=== PATIENT | female | born 1940 | race American Indian/Alaskan Native ===

== ENCOUNTER 2017-04-24 09:58 | Emergency (ER) | payer MEDICARE ==
[2017-04-24 11:07] VITALS: BP 168/84
[2017-04-24] MEDS ORDERED: MOTRIN PO ONE (13:49)
--- NOTE | 2017-04-24 13:59 | Emergency Department Report ---
ED Fall HPI - General Chief Complaint: Fall Stated Complaint: FALL Time Seen by Provider: 04/24/17 12:45 Source: patient Mode of arrival: Ambulatory - History of Present Illness Initial Comments: This is a 77-year-old female nontoxic, well nourished in appearance, no acute signs of distress presents to the ED with c/o of right shoulder pain status post fall that occured on 04/18/2016. Patient stated she was in [employer] and was walking and tripped over a water and landed on her right shoulder region. Patient denies any head trauma. Denies loss of consciousness. Patient denies any numbness, tingling, neck pain, nausea, vomiting, chest pain, shortness of breathe, fever, chills, headache. Patient describes pain as aching with level of 8/10. Patient stated her symptoms of pain has increased since the fall. Patient denies any drug allergies. PMH includes HTN. MD Complaint: fall -: days(s) (6) Fall From: standing When Fall Occurred: # days [employer] (6) Fall Witnessed: yes, by family (son) Place Fall Occurred: other ([facility]) Prolonged Down Time?: no Symptoms Prior to Fall: none Location - Extremities: Right: Shoulder Severity: mild Severity scale (0 -10): 8 Quality: aching Context: tripped/slipped Associated Symptoms: denies. denies: headache, neck pain, numbness, weakness, chest paint, shortness of breath, abdominal pain, hematuria, unable to walk, lightheaded, vertigo, confusion - Related Data Previous Rx's Medication Instructions Recorded Last Taken Type Ibuprofen [Motrin] 600 mg PO Q8H PRN #30 tablet 04/24/17 Unknown Rx Allergies Allergy/AdvReac Type Severity Reaction Status Date / Time lobster Allergy Vomiting Uncoded 04/24/17 11:03 ED Review of Systems ROS: Stated complaint: FALL Other details as noted in HPI Constitutional: denies: chills, fever Eyes: denies: eye pain, eye discharge, vision change ENT: denies: ear pain, throat pain Respiratory: denies: cough, shortness of breath, wheezing Cardiovascular: denies: chest pain, palpitations Endocrine: no symptoms reported Gastrointestinal: denies: abdominal pain, nausea, diarrhea Genitourinary: denies: urgency, dysuria, discharge Musculoskeletal: denies: back pain, joint swelling, arthralgia Skin: denies: rash, lesions Neurological: denies: headache, weakness, paresthesias Psychiatric: denies: anxiety, depression Hematological/Lymphatic: denies: easy bleeding, easy bruising ED Past Medical Hx - Past Medical History Previous Medical History?: Yes Hx Hypertension: Yes - Surgical History Past Surgical History?: Yes Additional Surgical History: Umbilical hernia repair, Fatty tissue removed from right shoulder and back of neck - Social History Smoking Status: Current Every Day Smoker Substance Use Type: Alcohol, Prescribed - Medications Home Medications: Home Medications Medication Instructions Recorded Confirmed Last Taken Type Ibuprofen [Motrin] 600 mg PO Q8H PRN #30 tablet 04/24/17 Unknown Rx ED Physical Exam - General Limitations: No Limitations General appearance: alert, in no apparent distress - Head Head exam: Present: atraumatic, normocephalic, normal inspection - Eye Eye exam: Present: normal appearance, PERRL, EOMI. Absent: scleral icterus, conjunctival injection, nystagmus, periorbital swelling, periorbital tenderness Pupils: Present: normal accommodation - ENT ENT exam: Present: normal exam, normal orophraynx, mucous membranes moist, TM's normal bilaterally, normal external ear exam - Neck Neck exam: Present: normal inspection, full ROM. Absent: tenderness, meningismus, lymphadenopathy, thyromegaly - Respiratory Respiratory exam: Present: normal lung sounds bilaterally. Absent: respiratory distress, wheezes, rales, rhonchi, stridor, chest wall tenderness, accessory muscle use, decreased breath sounds, prolonged expiratory - Cardiovascular Cardiovascular Exam: Present: regular rate, normal rhythm, normal heart sounds. Absent: bradycardia, tachycardia, irregular rhythm, systolic murmur, diastolic murmur, rubs, gallop - GI/Abdominal GI/Abdominal exam: Present: soft, normal bowel sounds. Absent: distended, tenderness, guarding, rebound, rigid, diminished bowel sounds - Rectal Rectal exam: Present: deferred - Extremities Exam Extremities exam: Present: normal inspection, full ROM, tenderness, normal capillary refill. Absent: pedal edema, joint swelling, calf tenderness - Expanded Upper Extremity Exam Right General: Present: normal inspection Shoulder Exam: Present: normal inspection, full ROM, tenderness. Absent: swelling, abrasion, laceration, ecchymosis, deformity, crepidus, dislocation, erythema, tenderness over AC joint Upper Arm exam: Present: normal inspection, full ROM. Absent: tenderness, swelling, abrasion, laceration, ecchymosis, deformity, crepidus, dislocation, erythema Elbow exam: Present: normal inspection, full ROM. Absent: tenderness, swelling , abrasion, laceration, ecchymosis, deformity, crepidus, dislocation, erythema, effusion, pain w/ pronation/supination, tenderness over radial head Forearm Wrist exam: Present: normal inspection, full ROM. Absent: tenderness, swelling, abrasion, laceration, ecchymosis, deformity, crepidus, dislocation, erythema, tenderness over anatomical snuff box, pain with axial thumb loading Hand Wrist exam: Present: normal inspection, full ROM. Absent: tenderness, swelling, abrasion, laceration, ecchymosis, deformity, crepidus, dislocation, erythema, amputation, nail avulsion, subungual hematoma Neuro motor exam: Present: wrist extension intact, thumb opposition intact, thumb IP flexion intact, thumb adduction intact, fingers 2-5 abduction intact Neurosensory exam: Present: 2-point discrimination, radial nerve intact, ulnar nerve intact, median nerve intact Vascular: Present: vascular compromise, normal capillary refill, radial pulse, brachial pulse, ulnar pulse - Back Exam Back exam: Present: normal inspection, full ROM. Absent: tenderness, CVA tenderness (R), CVA tenderness (L), muscle spasm, paraspinal tenderness, vertebral tenderness, rash noted - Neurological Exam Neurological exam: Present: alert, oriented X3, CN II-XII intact, normal gait, reflexes normal - Psychiatric Psychiatric exam: Present: normal affect, normal mood - Skin Skin exam: Present: warm, dry, intact, normal color. Absent: rash ED Course Vital Signs 04/24/17 11:03 Temperature 98.3 F Pulse Rate 63 Respiratory 18 Rate Blood Pressure 168/84 O2 Sat by Pulse 99 Oximetry - Reevaluation(s) Reevaluation #1: 04/24/17 14:01 Patient is speaking in full sentences with no signs of distress noted. ED Medical Decision Making - Medical Decision Making This is a 77-year-old female that presents with right shoulder strain. Patient is stable and was examined by me. Xray of right shoulder has been obtained and dictated by radiologist with possible bursitis and arthritis. Patient was notified of xray results with no questions noted. Patient received shoulder sling in the ED and was instructed to Follow-up with a orthopedic doctor in 3-5 days or if symptoms worsen and continue return to emergency room as soon as possible. At time time of discharge, the patient does not seem toxic or ill in appearance. No acute signs of distress noted. Patient agrees to discharge treatment plan of care. No further questions noted by the patient. Critical care attestation.: If time is entered above; I have spent that time in minutes in the direct care of this critically ill patient, excluding procedure time. ED Disposition Clinical Impression: Right shoulder strain Qualifiers: Encounter type: initial encounter Qualified Code(s): S46.911A - Strain of unspecified muscle, fascia and tendon at shoulder and upper arm level, right arm , initial encounter Disposition: TO HOME OR SELFCARE Is pt being admited?: No Does the pt Need Aspirin: No Condition: Stable Instructions: Ibuprofen (By mouth), Rotator Cuff Injury (ED) Additional Instructions: follow-up with the orthopedic doctor in 3-5 days for your abnormal xray as instructed to you in the ED or if symptoms worsen and continue return to emergency room as soon as possible. Prescriptions: Ibuprofen [Motrin] 600 mg PO Q8H PRN #30 tablet PRN Reason: Pain Referrals: CARMEN VU MD [Primary Care Provider] - 3-5 Days CELESTE CARUSO MD [Staff Physician] - 3-5 Days [facility] [Outside] - 3-5 Days [facility] [Outside] - 3-5 Days
--- NOTE | 2017-04-24 16:02 | XRay Report ---
FINAL REPORT EXAM: XR SHOULDER 2+V RT HISTORY: shoulder pain s/p fall TECHNIQUE: Three views right shoulder Comparison: None FINDINGS: There is global osteopenia. There is acromial clavicular degenerative arthritis especially along the undersurface. There is extensive HO Wu of the inferior acromion which likely impinges on the supraspinatus and possibly the infraspinatus. There is no dislocation. There are calcific densities projecting in the region of the expected insertion of the acromion which may represent calcific bursitis. The imaged right lung apex is clear. The scapula is unremarkable. There is no definite fracture. 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 Calcific bursitis likely present with calcific densities in the subacromial space. No acute fracture or dislocation identified.
== END 2017-04-24 16:23 | disposition home or self-care (01) ==
LOC: ED 09:58
DX: S46.911A Strain of unspecified muscle, fascia and tendon at shoulder and upper arm level, right arm, initial encounter (principal); F17.200 Nicotine dependence, unspecified, uncomplicated; I10 Essential (primary) hypertension; W18.39XA Other fall on same level, initial encounter; Y93.89 Activity, other specified; Y92.89 Other specified places as the place of occurrence of the external cause; Y99.8 Other external cause status
CPT/HCPCS: 99283

== ENCOUNTER 2017-07-21 19:02 | Emergency (ER) | payer MEDICARE ==
--- NOTE | 2017-07-21 22:47 | Emergency Department Report ---
ED General Adult HPI - General Chief complaint: Extremity Injury, Lower Stated complaint: LEFT LEG PAIN Time Seen by Provider: 07/21/17 22:35 Source: patient Mode of arrival: Ambulatory Limitations: No Limitations - History of Present Illness Initial comments: Patient is 77-year-old female with history of hypertension and right rotator cuff tear. Patient presented to the ER for evaluation of possible left lower extremity DVT. 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 She stated that she sustained a fall in April 2017 and she was evaluated in the ER for shoulder pain but 2 weeks later she started having left lower extremity pain. She denied any chest pain or shortness of breath. Patient denied any fever recently or trauma. Severity scale (0 -10): 0 - Related Data Previous Rx's Medication Instructions Recorded Last Taken Type Ibuprofen [Motrin] 600 mg PO Q8H PRN #30 tablet 04/24/17 Unknown Rx Allergies Allergy/AdvReac Type Severity Reaction Status Date / Time lobster Allergy Vomiting Uncoded 04/24/17 11:03 ED Review of Systems ROS: Stated complaint: LEFT LEG PAIN Other details as noted in HPI Comment: All other systems reviewed and negative Constitutional: denies: chills, fever Respiratory: denies: cough, shortness of breath, SOB with exertion Gastrointestinal: denies: abdominal pain, nausea, vomiting, diarrhea, constipation Musculoskeletal: denies: back pain Neurological: denies: headache, weakness ED Past Medical Hx - Past Medical History Hx Hypertension: Yes Additional medical history: right rotator cuff tear 2018 - Surgical History Additional Surgical History: Umbilical hernia repair, Fatty tissue removed from right shoulder and back of neck - Social History Smoking Status: Never Smoker Substance Use Type: None - Medications Home Medications: Home Medications Medication Instructions Recorded Confirmed Last Taken Type Ibuprofen [Motrin] 600 mg PO Q8H PRN #30 tablet 04/24/17 Unknown Rx ED Physical Exam - General Limitations: No Limitations General appearance: alert, in no apparent distress - Head Head exam: Present: atraumatic, normocephalic, normal inspection - Eye Eye exam: Present: normal appearance, PERRL - ENT ENT exam: Present: normal exam, normal orophraynx - Neck Neck exam: Present: normal inspection, full ROM. Absent: tenderness, meningismus, lymphadenopathy - Respiratory Respiratory exam: Present: normal lung sounds bilaterally. Absent: respiratory distress, wheezes, rales, rhonchi, stridor, chest wall tenderness, accessory muscle use, decreased breath sounds, prolonged expiratory - Cardiovascular Cardiovascular Exam: Present: regular rate, normal rhythm, normal heart sounds - GI/Abdominal GI/Abdominal exam: Present: soft, normal bowel sounds. Absent: distended, tenderness, guarding, rebound, rigid, organomegaly, mass, bruit, pulsatile mass , hernia - Extremities Exam Extremities exam: Present: normal inspection, full ROM, normal capillary refill. Absent: tenderness, pedal edema, joint swelling, calf tenderness - Back Exam Back exam: Present: normal inspection, full ROM. Absent: CVA tenderness (L), muscle spasm, paraspinal tenderness - Neurological Exam Neurological exam: Present: alert, oriented X3, CN II-XII intact, normal gait - Skin Skin exam: Present: warm, intact, normal color ED Course Vital Signs 07/21/17 07/21/17 07/21/17 19:10 22:25 22:30 Temperature 98.3 F Pulse Rate 62 Respiratory 18 16 Rate Blood Pressure 131/83 O2 Sat by Pulse 97 97 85 Oximetry 07/21/17 07/21/17 07/21/17 22:31 22:32 22:33 Temperature Pulse Rate 69 61 60 Respiratory 13 13 13 Rate Blood Pressure 183/79 183/79 O2 Sat by Pulse 97 97 98 Oximetry 07/21/17 07/21/17 07/21/17 22:35 22:39 22:41 Temperature 97.9 F Pulse Rate 62 49 L Respiratory 13 10 L Rate Blood Pressure 183/79 183/79 O2 Sat by Pulse 99 99 Oximetry 07/21/17 07/21/17 07/21/17 22:45 22:51 22:55 Temperature Pulse Rate 55 L 60 57 L Respiratory 12 9 L 11 L Rate Blood Pressure 183/79 183/79 183/79 O2 Sat by Pulse 98 96 97 Oximetry 07/21/17 07/21/17 07/21/17 23:01 23:05 23:11 Temperature Pulse Rate 54 L 59 L 57 L Respiratory 16 26 H 17 Rate Blood Pressure 180/74 180/74 180/74 O2 Sat by Pulse 95 100 97 Oximetry 07/21/17 07/21/17 07/21/17 23:15 23:21 23:25 Temperature Pulse Rate 59 L 60 57 L Respiratory 26 H 11 L 16 Rate Blood Pressure 180/74 180/74 180/74 O2 Sat by Pulse 98 96 95 Oximetry 07/21/17 07/21/17 07/21/17 23:30 23:35 23:41 Temperature Pulse Rate 57 L 59 L 57 L Respiratory 15 17 23 Rate Blood Pressure 180/80 180/80 180/80 O2 Sat by Pulse 95 96 94 Oximetry 07/21/17 07/21/17 23:45 23:51 Temperature Pulse Rate 58 L 60 Respiratory 22 17 Rate Blood Pressure 180/80 180/80 O2 Sat by Pulse 97 95 Oximetry ED Medical Decision Making - Lab Data Result diagrams: 07/21/17 22:54 07/21/17 22:54 - Radiology Data Radiology results: report reviewed X-ray of left knee and left tibia and fibula and left ankle with no acute finding. The patient d-dimer is 234, so DVT is very unlikely. I advised the patient to follow up with her primary care physician and to return to the ER if her symptoms are not improving. Critical care attestation.: If time is entered above; I have spent that time in minutes in the direct care of this critically ill patient, excluding procedure time. ED Disposition Clinical Impression: Left leg pain, Left knee pain Disposition: DC-01 TO HOME OR SELFCARE Is pt being admited?: No Condition: Stable Instructions: Arthralgia (ED), Knee Pain (ED) Referrals: PRIMARY CARE, [Primary Care Provider] - 3-5 Days
[2017-07-21 23:03] LABS: Basophils # (Auto) 0.1 K/mm3 (0.0-0.1); Basophils % (Auto) 0.7 % (0.0-1.8); Eosinophils # (Auto) 0.3 K/mm3 (0.0-0.4); Eosinophils % (Auto) 4.1 % (0.0-4.3); Hematocrit 41.6 % (30.3-42.9); Hemoglobin 13.8 gm/dl (10.1-14.3); Lymphocytes # (Auto) 2.8 K/mm3 (1.2-5.4); Lymphocytes % (Auto) 38.9 % (13.4-35.0); Mean Corpuscular HGB Conc 33 % (30-34); Mean Corpuscular Hemoglobin 31 pg (28-32); Mean Corpuscular Volume 93 fl (79-97); Monocytes # (Auto) 0.6 K/mm3 (0.0-0.8); Monocytes % (Auto) 8.8 % (0.0-7.3); Platelet Count 230 K/mm3 (140-440); Red Blood Count 4.49 M/mm3 (3.65-5.03); Red Cell Distribution Width 15.3 % (13.2-15.2)
[2017-07-21 23:13] LABS: INR 0.84 (0.87-1.13)
[2017-07-21 23:14] LABS: Partial Thromboplastin Time 25.1 Sec. (24.2-36.6)
[2017-07-21 23:18] LABS: Alanine Aminotransferase 14 units/L (7-56); Albumin 3.8 g/dL (3.9-5); BUN/Creatinine Ratio 18; Blood Urea Nitrogen 14 mg/dL (7-17); Calcium 8.8 mg/dL (8.4-10.2); Hemolysis Index 8
[2017-07-21 23:57] VITALS: BP 180/80
--- NOTE | 2017-07-21 23:57 | XRay Report ---
FINAL REPORT EXAM: XR KNEE 3V LT HISTORY: knee pain TECHNIQUE: Three views of the left knee PRIORS: None. FINDINGS: The bones are normally aligned and mineralized. The joint spaces are well-preserved. There is no evidence of acute fracture. The soft tissues are unremarkable. IMPRESSION: No evidence of acute fracture or subluxation. Normal left knee series
--- NOTE | 2017-07-22 | XRay Report ---
FINAL REPORT EXAM: XR TIBIA FIBULA 2V LT HISTORY: leg pain TECHNIQUE: AP and lateral views of the left tibia fibula PRIORS: None. FINDINGS: The bones are normally aligned and mineralized. There is no evidence of fracture or subluxation. The soft tissues are unremarkable. IMPRESSION: No evidence of acute injury.
--- NOTE | 2017-07-22 00:03 | XRay Report ---
FINAL REPORT EXAM: XR ANKLE 3+V LT HISTORY: ankle pain TECHNIQUE: Three views of the left ankle PRIORS: None. FINDINGS: The bones are normally aligned and mineralized. There is no evidence of acute fracture. The soft tissues are unremarkable. There is evidence of osteoarthrosis of the 1st metatarsophalangeal joint, not entirely included in the field of view. Otherwise, the joint spaces are well-preserved. IMPRESSION: No evidence of acute fracture or subluxation. Achilles calcaneal spur. 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
== END 2017-07-22 01:04 | disposition home or self-care (01) ==
LOC: ED 19:02
DX: M25.562 Pain in left knee (principal); M79.605 Pain in left leg
CPT/HCPCS: 36415; 80053; 85025; 85379; 85610; 85730

== ENCOUNTER 2017-08-17 14:11 | Emergency (ER) | payer MEDICARE ==
[2017-08-17] MEDS ORDERED: DECADRON IV STA (19:24)
--- NOTE | 2017-08-17 19:24 | Emergency Department Report ---
HPI - General Chief Complaint: Extremity Injury, Lower Time Seen by Provider: 08/17/17 19:03 - HPI HPI: Patient reports that she has bilateral lower extremity pain and that she fell on 04/17/2017 and injured her rotator cuff and has right rotator cuff tear. She says she's had MRI done which showed as she had a right rotator cuff and biceps tear. She said her leg started hurting more 2 weeks ago. Patient says she's had ultrasound done and it didn't show clot she's had MRI done for leg and she has arthritis. Patient says that she is on Ultram she was here on 07/22 and was given prescription for Motrin and Zofran and Ultram which she still has and she said is not helping. She is also taking gabapentin and [place] were she went to [facility] and was prescribed. She says she did Excedrin extra strength and that helped a little. Patient is scheduled to have a study done and was referred to [place] [facility]. She said she called today and they can't see her until September 02. She has an appointment with [facility] 2017 for primary care and she said this is the first time she was going there. She says she is in between primary care doctors at present. She says she's had multiple x-rays after the fall. Patient reports pain stated at 8/10 to both her legs going up into her knee and it is tingling and burning pain. She is also going to [facility] orthopedic and she is given physical therapy and has an appointment on 08/22/2017 to see orthopedic doctor there. [facility] referred her to [place] [facility]. Pain is worse in her left leg. Pain is worse with walk- in and movement. Denies any swelling, chest pain or shortness of breath. Denies any recent fall. Denies any back pain or nausea vomiting. Patient is a smoker she's been smoking for 60 years and she says she started off with half a pack a day and now she is up to a pack a day for 9 years and she said that she is very stressed taking care of her grandchildren . Alleviating factors minimally with Excedrin ES and rest exacerbation factors walking and movement. ED Past Medical Hx - Past Medical History Previous Medical History?: Yes Hx Hypertension: Yes Hx Arthritis: Yes (Osteoarthritis) Additional medical history: right rotator cuff tear 2018, LEFT LEG PAIN. Chronic Neuropathy. Chronic pain syndrome - Surgical History Past Surgical History?: Yes Additional Surgical History: Umbilical hernia repair, Fatty tissue removed from right shoulder and back of neck - Family History Family history: hypertension - Social History Smoking Status: Current Every Day Smoker Substance Use Type: Alcohol, Prescribed Other Social History: Single and lives with grandchildren - Medications Home Medications: Home Medications Medication Instructions Recorded Confirmed Last Taken Type traMADol [Ultram 50 MG tab] 50 mg PO Q4HR PRN #14 tablet 07/22/17 08/17/1708/17 09:00 Rx HYDROcodone/ACETAMINOPHEN [[place] 1 each PO Q6HR PRN 08/17/17 08/17/17 08/15/17 History 5-325 Tablet] ED Review of Systems ROS: Stated complaint: PAIN IN LEG Other details as noted in HPI Constitutional: denies: chills, fever Eyes: denies: eye pain, eye discharge, vision change ENT: denies: ear pain, throat pain Respiratory: denies: cough, shortness of breath, wheezing Cardiovascular: denies: chest pain, palpitations, dyspnea on exertion, edema, syncope, paroxysmal nocturnal dyspnea Gastrointestinal: denies: abdominal pain, nausea, diarrhea Genitourinary: denies: urgency, dysuria, hematuria, discharge Musculoskeletal: arthralgia. denies: back pain, joint swelling Skin: denies: rash, lesions Neurological: numbness, paresthesias. denies: headache, weakness, confusion, abnormal gait, vertigo Physical Exam - Physical Exam Vital Signs: Vital Signs 08/17/17 14:32 Temperature 97.8 F Pulse Rate 68 Respiratory 20 Rate Blood Pressure 193/77 O2 Sat by Pulse 99 Oximetry Vital Signs 08/17/17 08/17/17 14:32 20:34 Temperature 97.8 F Pulse Rate 68 Respiratory 20 Rate Blood Pressure 193/77 Blood Pressure 150/78 [Left] O2 Sat by Pulse 99 Oximetry General: This is a 77-year-old female well-nourished well-developed appears to be in mild distress from pain Physical Exam: Head: Normocephalic, atraumatic, no abrasion, no bruising and no contusion. Eyes: Biateral pupils equal and reactive to light, bilateral EOM intact.. Bilateral conjunctival and sclera without injection, normal accommodation. Mouth: Mucosa moist, no pharyngeal exudate or erythema. No peritonsillar abscesses. Uvula is midline and oral airways patent. Neck: Supple, No Cervical adenopathy, full range of motion and no C-spine tenderness. No swelling or tracheal deviation normal reflexes Cardiovascular: S1, S2. Regular rate and rhythm. No murmur. Capillary refill is less then 3 seconds. Lungs: Clear to auscultate bilaterally. No rhonchi, wheezes or rales. No chest wall tenderness. No chest contusion. No bruising to chest. MSK: Strength 5/5 in all extremities. No joint deformity . No joint effusion. No erythema or tenderness to palpate to joints Positive knee joints crepitus. Normal inspection. Full range of motion to all extremities but reported it hurts to walk to her legs and when she moves her right shoulder.. No laceration, abrasion or ecchymotic area noted. Abdomen: Non-tender to palpate in all quadrants, no guarding or rebound tenderness, positive bowel sounds in all quadrants. No CVA tenderness. No hernia, bruit or mass. No rigidity or distention. Extremities: No clubbing, cyanosis or edema. +2 pulses. No neurovascular compromise. No laceration, contusion, abrasions or ecchymotic area to extremities. Skin: Clean, dry and intact. No rash or lesions. Neurological: GCS at 15, Pt is alert and oriented 3 speech is clear . Bilateral hand lcsw strong and equal. Normal gait. Negative Normal Reflexes. No motor or sensory deficit Back: No vertebral tenderness, no paraspinal tenderness. Ambulates without any difficulties. Psych: Normal mood and behavior ED Course Vital Signs 08/17/17 14:32 Temperature 97.8 F Pulse Rate 68 Respiratory 20 Rate Blood Pressure 193/77 O2 Sat by Pulse 99 Oximetry Vital Signs 08/17/17 08/17/17 14:32 20:34 Temperature 97.8 F Pulse Rate 68 Respiratory 20 Rate Blood Pressure 193/77 Blood Pressure 150/78 [Left] O2 Sat by Pulse 99 Oximetry - Reevaluation(s) Reevaluation #1: 08/17/17 19:55 INT started and patient given Decadron 10 mg IV, Zofran 4 mg IV, Toradol 30 mg IV and she was given oxycodone 10 by mouth and we'll reevaluate her pain. Reevaluation #2: 08/17/17 20:16 Patient was a pain is down to 3 out of 10 and she feels better after medication. Patient discharged home with her family member and to follow up with multiple specialists. ED Medical Decision Making - Medical Decision Making ED course: Sent here report that she has lower leg pain that is chronic and also has chronic right shoulder pain from rotator cuff injury. She has multiple specialty that she has an appointment with and she is oriented and physical therapy. Patient says that she cannot get into [facility] until September 02 and she decided to come to the hospital because she is in severe pain to her legs. Patient has neuropathy and she is on Neurontin, tramadol and [place] which she said is not helping. I discussed patient that I can give her pain medication and hospital but I cannot prescribe her anything to go home with crutches she is already on multiple medication. Smoking cessation encouraged. Patient was given Toradol 30 mg IV, Decadron 10 mg IV, Zofran 4 mg IV and oxycodone 10 by mouth in emergency room which relieved her pain. Discharged from emergency room with her family follow up with her primary care and pain specialist, orthopedic doctor and continue physical therapy. Critical care attestation.: If time is entered above; I have spent that time in minutes in the direct care of this critically ill patient, excluding procedure time. ED Disposition Clinical Impression: Nicotine abuse, Neuropathic pain of both legs Arthralgia of lower leg Qualifiers: Laterality: bilateral Qualified Code(s): M25.561 - Pain in right knee Disposition: DC-01 TO HOME OR SELFCARE Is pt being admited?: No Does the pt Need Aspirin: No Condition: Stable Instructions: How to Stop Smoking (ED), Chronic Pain (ED), Peripheral Neuropathy (ED), Arthralgia (ED) Additional Instructions: Please stop smoking as this can worsen your neuropathy and cause increased pain Increasing fluid intake You are already taken multiple narcotics to include tramadol and [place] and I cannot prescribe you anymore narcotics. He will need to be managed by your primary care and orthopedic doctor and teaching get into [place] [facility]. In the meantime, he needs to stop smoking as this will progress your neuropathic pain. See discharge discharged in on smoking cessation Referrals: Followup with, [facility] [Other] - 08/22/17 (Scheduled) follow-up with primary care, [facility] [Other] - 08/23/17 (As scheduled) follow-up with, [facility] [Other] - 08/22/17 (call to schedule an appointment)
[2017-08-17] MEDS ORDERED: ZOFRAN IV ONE (19:25)
[2017-08-17] MEDS ORDERED: ROXICODONE PO ONE (19:25)
[2017-08-17] MEDS ORDERED: TORADOL IV ONE (19:25)
[2017-08-17 20:49] VITALS: BP 180/85
== END 2017-08-17 20:49 | disposition home or self-care (01) ==
LOC: ED 14:11
DX: M25.562 Pain in left knee (principal); M25.561 Pain in right knee; I10 Essential (primary) hypertension; M19.90 Unspecified osteoarthritis, unspecified site; F17.200 Nicotine dependence, unspecified, uncomplicated; G57.93 Unspecified mononeuropathy of bilateral lower limbs; Z91.013 Allergy to seafood
CPT/HCPCS: 96374; 96375; 99283; J1100; J1885; J2405

== ENCOUNTER 2021-08-24 01:24 | Emergency (ER) | payer MEDICARE, OTHER ==
[2021-08-24 01:39] VITALS: BP 141/78
[2021-08-24 02:33] LABS: Basophils # (Auto) 0.1 K/mm3 (0.0-0.1); Basophils % (Auto) 0.8 % (0.0-1.8); Eosinophils # (Auto) 0.2 K/mm3 (0.0-0.4); Eosinophils % (Auto) 1.9 % (0.0-4.3); Hematocrit 40.1 % (30.3-42.9); Hemoglobin 13.4 gm/dl (10.1-14.3); Lymphocytes # (Auto) 2.2 K/mm3 (1.2-5.4); Lymphocytes % (Auto) 21.3 % (13.4-35.0); Mean Corpuscular HGB Conc 33 % (30-34); Mean Corpuscular Volume 93 fl (79-97); Monocytes # (Auto) 1.3 K/mm3 (0.0-0.8); Monocytes % (Auto) 13.1 % (0.0-7.3); Platelet Count 228 K/mm3 (140-440); Red Blood Count 4.31 M/mm3 (3.65-5.03); Red Cell Distribution Width 15.1 % (13.2-15.2)
[2021-08-24 03:08] LABS: Alanine Aminotransferase 13 units/L (7-56); Albumin 3.7 g/dL (3.9-5); BUN/Creatinine Ratio 19; Blood Urea Nitrogen 17 mg/dL (7-17); Calcium 9.3 mg/dL (8.4-10.2); Hemolysis Index 7
[2021-08-24 03:34] LABS: Bilirubin,Urine NEG (Negative); Blood,Urine NEG (Negative); Color,Urine Yellow (Yellow); Mucus,Urine FEW /HPF; Protein,Urine <15 mg/dL mg/dL (Negative)
== END 2021-08-25 01:08 | disposition left against medical advice (07) ==
LOC: ED 01:24
DX: R10.9 Unspecified abdominal pain (principal); Z53.21 Procedure and treatment not carried out due to patient leaving prior to being seen by health care provider
CPT/HCPCS: 36415; 80053; 81001; 85025